=== PATIENT | female | born 1990 | race Caucasian/White ===

== ENCOUNTER 2017-02-19 18:06 | Emergency (ER) | payer OTHER ==
[~2017-02-19] VITALS: Ht 149.9 cm; Wt 67.2 kg
[2017-02-19 18:21] VITALS: Ht 149.9 cm; Wt 67.2 kg
[2017-02-19 23:11] VITALS: BP 101/69
== END 2017-02-19 23:11 | disposition home or self-care (01) ==
LOC: ED 18:06
DX: L50.9 Urticaria, unspecified (principal); J45.909 Unspecified asthma, uncomplicated
CPT/HCPCS: J1100; J1200